=== PATIENT | female | born 1990 | race Hispanic/Latino ===

== ENCOUNTER 2021-09-08 14:30 | Emergency (ER) | payer SELFPAY | END 2021-09-08 15:32 | LOC: ERS 14:30 | DX: L03.116 Cellulitis of left lower limb (principal); L03.115 Cellulitis of right lower limb; L03.114 Cellulitis of left upper limb; L03.113 Cellulitis of right upper limb | CPT/HCPCS: 99283 ==

== ENCOUNTER 2021-09-18 20:25 | Emergency (ER) | payer SELFPAY ==
[2021-09-18] MEDS ORDERED: Ondansetron ODT 4 MG TAB ONE (20:58)
== END 2021-09-18 21:15 | disposition home or self-care (01) ==
LOC: ERS 20:25
DX: U07.1 COVID-19 (principal)
CPT/HCPCS: 99283; Q0162; U0003; U0005